=== PATIENT | female | born 1985 | race Caucasian/White ===

== ENCOUNTER 2018-11-20 20:56 | Inpatient (IN) | payer BC ==
[2018-11-20] MEDS ORDERED: DINOPROSTONE 10 MG VAGINAL INSERT.SR PV PRN (21:18)
[2018-11-20] MEDS ORDERED: ACETAMINOPHEN 325 MG TABLET PO PRN (21:31)
[2018-11-20] MEDS ORDERED: MAG HYDROX/AL HYDROX/SIMETH SUSP 30 ML UDCUP PO PRN (21:31)
--- NOTE | 2018-11-20 21:45 | Admission Physical ---
Datetime Report Generated by CPN: 11/20/2018 21:45 CURRENT ADMISSION Chief Complaint: Scheduled Induction of Labor Indication for Induction: Maternal Diabetes Admit Impression : Term, Intrauterine ; No Active Labor Admit Plan: Admit to Unit; Initiate Labor Induction Protocol ALLERGIES Medication Allergies: No Environmental Allergies: seasonal OBSTETRICAL HISTORY EDC: 11/26/2018 00:00 : 1 Para: 0 Term: 0 : 0 SAB: 0 IAB: 0 Ectopic: 0 Livin Cesareans: 0 VBACs: 0 Multiple Births: 0 Gestational Diabetes: Yes Rh Sensitization: No Incompetent Cervix: No GIOVANNY: No Infertility: Yes ART Treatment: No Uterine Anomaly: No IUGR: No Hx Previous C/S: No Macrosomia: No Hx Loss/Stillborn: No PIH: No Hx : No Placenta Previa/Abruption: No Depression/PP Depression: No PTL/PROM: No Post Hemorrhage: No Current Procedures: Ultrasound Obstetrical History Comments: G1-Current MEDICAL HISTORY Diabetes: Yes Diabetes Type: Gestational Diabetes Blood Transfusion: No Pulmonary Disease (Asthma, TB): No Breast Disease: No Hypertension: No [employer] Professional Surgery: No Heart Disease: No Hosp/Surgery: No Autoimmune Disorder: No Anesthetic Complications: No Kidney Disease: No Abnormal Pap Smear: No Neuro/Epilepsy: No Psychiatric Disorders: No Other Medical Diseases: Yes Hepatitis/Liver Disease: No Significant Family History: No Varicosities/Phlebitis: No Trauma/Violence : No Thyroid Dysfunction: No Medical History Comments: PCOS-took Metformin until 26wks gestation; wisdom teeth removed INFECTIOUS HISTORY Gonorrhea: No Genital Herpes: No Chlamydia: No Tuberculosis: No Syphilis: No Hepatitis: No HIV/AIDS Exposure: No Rash or Viral Illness: No HPV: No PHYSICAL EXAM General: Normal HEENT: Normal Neurologic: Normal Thyroid: Normal Heart: Normal Lungs: Normal Breast: Normal Back: Normal Abdomen: Normal Genitourinary Exam: Normal Extremities: Normal DTRs: Normal Pelvic Type: Adequate Vital Signs: Reviewed; Within Normal Limits VAGINAL EXAM Dilatation: cl Contraction Comments: rare FETUS A EGA: 39.1 Monitoring: External US FHR- Baseline: 140-150s Variability: Moderate 6-25bpm Accelerations: 15X15 Decelerations: None FHR Category: Category I Admit Comment: GDM--on Glyburide, poor control PLANS FOR LABOR AND DELIVERY Circumcision: Yes INFORMED CONSENT Signature: with User ID: [email or web address]
[2018-11-20 21:47] LABS: ABSOLUTE EOSINOPHILS # (AUTO) 0.3 10^3/uL (0.0-0.6); ABSOLUTE LYMPHOCYTES (AUTO) 1.3 10^3/uL (0.5-4.7); ABSOLUTE MONOCYTES (AUTO) 0.8 10^3/uL (0.1-1.4); ABSOLUTE NEUT (AUTO) 7.3 10^3/uL (1.7-8.2); BASOPHILS % (AUTO) 0.4 % (0-2); EOSINOPHILS % (AUTO) 3.3 % (0-6); HEMATOCRIT 36.3 % (36.0-47.0); HEMOGLOBIN 12.3 g/dL (12.0-15.5); LYMPHOCYTES % (AUTO) 13.4 % (13-45); MEAN CORPUSCULAR HEMOGLOBIN 27.6 pg (27.0-33.4); MEAN CORPUSCULAR HGB CONC 33.8 g/dL (32.0-36.0); MEAN CORPUSCULAR VOLUME 82 fl (80-97); PLATELET COUNT 255 10^3/uL (150-450); RED BLOOD COUNT 4.43 10^6/uL (3.72-5.28); RED CELL DISTRIBUTION WIDTH 14.1 % (11.5-14.0); SEGMENTED NEUTROPHILS % (AUTO) 74.9 % (42-78); TOTAL CELLS COUNTED % (AUTO) 100 %; WHITE BLOOD COUNT 9.7 10^3/uL (4.0-10.5)
[2018-11-20 21:51] LABS: APPEARANCE,URINE CLOUDY; BILIRUBIN,URINE NEGATIVE (NEGATIVE); COLOR,URINE YELLOW; GLUCOSE, URINE NEGATIVE (NEGATIVE); KETONES,URINE NEGATIVE (NEGATIVE); LEUKOCYTE ESTERASE,URINE LARGE (NEGATIVE); NITRITE,URINE NEGATIVE (NEGATIVE); PROTEIN,URINE NEGATIVE (NEGATIVE); URINE SPECIFIC GRAVITY 1.028; UROBILINOGEN,URINE NEGATIVE mg/dL (<2.0)
[2018-11-20] MEDS ORDERED: DINOPROSTONE 10 MG VAGINAL INSERT.SR ONE (21:57)
[2018-11-20] MEDS ORDERED: ZOLPIDEM TARTRATE 5 MG TABLET PO SCH (22:00)
[2018-11-20] MEDS ORDERED: RINGERS SOLUTION,LACTATED 300 ML IV ONE (22:00)
[2018-11-20 22:03] LABS: ALANINE AMINOTRANSFERASE 21 U/L (9-52); ALBUMIN 3.2 g/dL (3.5-5.0); ALKALINE PHOSPHATASE 193 U/L (38-126); ANION GAP 7 (5-19); ASPARTATE AMINO TRANSFERASE 15 U/L (14-36); BILIRUBIN,DIRECT 0.1 mg/dL (0.0-0.4); BILIRUBIN,TOTAL 0.3 mg/dL (0.2-1.3); BLOOD UREA NITROGEN 11 mg/dL (7-20); CARBON DIOXIDE 23 mmol/L (22-30); CHLORIDE 108 mmol/L (98-107); GLUCOSE 130 mg/dL (75-110); POTASSIUM 4.3 mmol/L (3.6-5.0); SODIUM 138.4 mmol/L (137-145); TOTAL PROTEIN 5.6 g/dL (6.3-8.2)
[2018-11-20 22:10] LABS: URINE AMPHETAMINES SCREEN NEGATIVE; URINE BARBITURATES SCREEN NEGATIVE; URINE BENZODIAZEPINES SCREEN NEGATIVE; URINE COCAINE SCREEN NEGATIVE; URINE MARIJUANA (THC) SCREEN NEGATIVE; URINE METHADONE SCREEN NEGATIVE; URINE PHENCYCLIDINE SCREEN NEGATIVE
[2018-11-21] MEDS ORDERED: AMOXICILLIN PO SCH (10:00)
[2018-11-21] MEDS ORDERED: GUAIFENESIN PO SCH (10:00)
[2018-11-21] MEDS ORDERED: P EPHED HCL PO SCH (10:00)
[2018-11-21] MEDS: AMOXICILLIN TRIHYDRATE 500 MG CAPSULE PO SCH ×3 (10:04→22:00)
[2018-11-21] MEDS: RINGERS SOLUTION,LACTATED 1,000 ML IV PRN ×2 (10:05→21:36)
[2018-11-21] MEDS ORDERED: OXYTOCIN/NORMAL SALINE 20 UNIT/1,000 ML RTUINJ IV PRN (12:34)
[2018-11-21] MEDS ORDERED: OXYTOCIN/NORMAL SALINE 20 UNIT/1,000 ML RTUINJ ONE (12:37)
[2018-11-21] MEDS ORDERED: LIDOCAINE 1% INJ-PF (10 MG/ML) 30 ML SDV ONE ×2 (12:37→21:00)
[2018-11-21] MEDS ORDERED: MISOPROSTOL 0.2 MG TABLET ONE (12:37)
[2018-11-21] MEDS: MONTELUKAST SODIUM 10 MG TABLET PO SCH (13:34)
--- NOTE | 2018-11-21 15:19 | L&D Progress Notes ---
PROGRESS NOTES Datetime Report Generated by CPN: 11/21/2018 15:19 PROGRESS NOTE Impression: Normal Progression of Labor Procedures: Sterile Vag Exam Plan: Continue Present Management; Induction Informed Consent Obtained: Vaginal Delivery Comment: pitocin infusing at 6mu/min. cook catheter out. continue pitocin IOL, anticipate VAGINAL EXAM Dilatation: 5 Dilatation: cl Effacement: 75 Station: -3 Contractions: rare LAST VAGINAL EXAM-NURSING Dilitation: 5.0 Dilitation: 3.0 Dilitation: 1.0 Dilitation: 0.0 Effacement: 75 Effacement: 75 Effacement: 50 Effacement: 50 Station: -3 Station: -3 Station: -3 Station: high Contractions: UTD due to pt in bathroom Contractions: UTD due to pt position Contractions: applied MEMBRANES Membranes: Intact FETUS A FHR - Baseline: 135 Monitoring: External US Variability: Moderate 6-25bpm Accelerations: 15X15 Decelerations: None FHR Category: Category I : 40+5 : 39.1 SIGNATURE SIGNATURE: [id number] SIGNATURE: [id number] Assignment: Julianna Mackey MD Signature: with User ID: [email or web address] : with User ID: Leslie
[2018-11-21] MEDS ORDERED: DIPHENHYDRAMINE HCL 50 MG/ML VIAL ONE (19:51)
[2018-11-21] MEDS ORDERED: DIPHENHYDRAMINE HCL 50 MG/ML VIAL IV ONE (19:51)
--- NOTE | 2018-11-21 20:03 | L&D Progress Notes ---
PROGRESS NOTES Datetime Report Generated by CPN: 11/21/2018 20:02 PROGRESS NOTE Impression: Normal Progression of Labor; Rupture of Membranes Procedures: Artificial ROM; Sterile Vag Exam Plan: Continue Present Management; Induction; Cervical Ripening Informed Consent Obtained: Vaginal Delivery; Induction of Labor; Risks, Benefits and Alternatives Discussed Comment: reportedly 5cm at last check. However, on my exam 4cm and anterior with cervix swollen. Benadryl for cervical swelling. Light meconium noted. Reviewed meconium with patient. Continue pitocin and position changes. Epidural upon maternal request. VAGINAL EXAM Dilatation: 4 Effacement: 50 Station: -3 Contractions: q 2-4 Dilitation: 4.0 Effacement: 50 Station: -3 Contractions: UTD due to pt in bathroom, RN at bedside palpating ctxs MEMBRANES Membranes: Ruptured Amniotic Fluid Color: Meconium, Light FETUS A FHR - Baseline: 120 Monitoring: External US Variability: Moderate 6-25bpm Accelerations: 15X15 Decelerations: None FHR Category: Category I FETUS C SIGNATURE: [id number] Signature: with User ID: [email or web address]
[2018-11-21] MEDS ORDERED: FENTANYL/BUPIVACAINE/NS/PF 300 MCG/150 ML RTUINJ EPI ONE (20:34)
[2018-11-21] MEDS ORDERED: BUPIVACAINE HCL 0.25 % INJ/PF (2.5 MG/1 ML) 30 ML VIAL ONE (20:34)
[2018-11-21] MEDS ORDERED: EPHEDRINE SULFATE INJ 50 MG/1 ML AMPULE ONE (20:34)
[2018-11-22] MEDS ORDERED: LIDOCAINE 2% INJ-PF (20 MG/ML) 10 ML AMPUL ONE (02:10)
[2018-11-22] MEDS ORDERED: DIPHENHYDRAMINE HCL 50 MG/ML VIAL ONE (02:21)
[2018-11-22] MEDS ORDERED: DIPHENHYDRAMINE HCL 50 MG/ML VIAL IV ONE (03:00)
[2018-11-22] MEDS ORDERED: OXYTOCIN/NORMAL SALINE 20 UNIT/1,000 ML RTUINJ ONE (07:19)
[2018-11-22] MEDS ORDERED: OXYTOCIN/NORMAL SALINE 20 UNIT/1,000 ML RTUINJ IV PRN (08:02)
[2018-11-22] MEDS ORDERED: ACETAMINOPHEN 650 MG SUPP.RECT PR PRN (08:02)
[2018-11-22] MEDS ORDERED: PSEUDOEPHEDRINE HCL 30 MG TABLET PO PRN (08:02)
[2018-11-22] MEDS ORDERED: MISOPROSTOL 0.2 MG TABLET PR PRN (08:02)
[2018-11-22] MEDS ORDERED: ACETAMINOPHEN WITH CODEINE #3 TABLET PO PRN ×2 (08:02)
[2018-11-22] MEDS ORDERED: PROMETHAZINE HCL 25 MG SUPP.RECT PR PRN (08:02)
[2018-11-22] MEDS ORDERED: MAGNESIUM HYDROXIDE SUSP 30 ML UDCUP PO PRN (08:02)
[2018-11-22] MEDS ORDERED: BENZOCAINE/MENTHOL AEROSOL SPRAY 56 ML TOP PRN (08:02)
[2018-11-22] MEDS ORDERED: ZOLPIDEM TARTRATE 5 MG TABLET PO PRN (08:02)
[2018-11-22] MEDS ORDERED: PROMETHAZINE HCL 25 MG TABLET PO PRN (08:02)
[2018-11-22] MEDS ORDERED: NA PHOS,M-B/NA PHOS,DI-BA (ADULT) 133 ML ENEMA PR PRN (08:02)
[2018-11-22] MEDS ORDERED: DIBUCAINE 1% OINTMENT 28 GM TP PRN (08:02)
[2018-11-22] MEDS ORDERED: DIPH/PERTUSS(ACELL)/TETANUS VAC/PF 0.5 ML SYR (>=10YO) IM PRN (08:02)
[2018-11-22] MEDS ORDERED: MEASLES,MUMPS&RUBELLA VACC/PF 0.5 ML VIAL SUBCUT PRN (08:02)
[2018-11-22] MEDS ORDERED: GLYCERIN/WITCH HAZEL LEAF 1 EACH MED..PAD TP PRN (08:02)
[2018-11-22] MEDS ORDERED: PROMETHAZINE HCL INJ 25 MG/1 ML VIAL IV PRN (08:02)
[2018-11-22] MEDS ORDERED: DIPHENHYDRAMINE HCL 25 MG CAPSULE PO PRN (08:02)
--- NOTE | 2018-11-22 08:49 | Warning Signs in Babies ---
VOD Warning Signs Datetime Report Generated by [facility]: 11/22/2018 08:48 VOD#608 -Warning Signs in Babies: Viewed with Parent(s)/Family (11/20/2018 19:54:Ellie Jason RN)
[2018-11-22] MEDS: AMOXICILLIN TRIHYDRATE 500 MG CAPSULE PO SCH ×3 (08:58→21:43)
[2018-11-22] MEDS: PRENATAL VITAMIN W DHA CAPSULE PO SCH (10:29)
[2018-11-22] MEDS: SENNOSIDES/DOCUSATE 8.6-50 MG 1 EACH TABLET PO SCH (10:29)
[2018-11-22] MEDS: DOCUSATE SODIUM 100 MG CAPSULE PO SCH ×2 (10:30→18:25)
[2018-11-22] MEDS: FERROUS SULFATE 325 MG TABLET PO SCH ×2 (10:31→18:25)
[2018-11-22] MEDS: FAMOTIDINE 20 MG TABLET PO SCH ×2 (10:31→21:45)
--- NOTE | 2018-11-22 12:24 | Delivery Summary ---
Del Sum A-C Datetime Report Generated by CPN: 11/22/2018 12:23 DELIVERY PERSONNEL DELIVERY PERSONNEL: [id number] Delivery Doctor:: Julianna Mackey MD Labor and Delivery Nurse:: Amaya Chance RNaccounting generalist Nurse:: Ellie Jason RN Nursery Nurse:: Madalyn Abdullahi RN Nursery Nurse:: Radha Arciniega RN Die Trimmer/REPORT CHECKER: Denis Ertel, REPORT CHECKER MATERNAL INFORMATION Delivery Anesthesia: Epidural Medications After Delivery: Pitocin Drip 20 Units/1000ml NSS; Cytotec 1000mcg Per Rectum/Vagina Estimated Blood Loss (ml): 900 Maternal Complications: None Provider Comments: VMI delivered in MAG presentation. No nuchal cord. body and compound cord. Shoulders and body delivered without difficulty. Cord doubly clamped and cut and infant to maternal abdomen for NRP. Placenta delivered intact spontaneously. Pitocin infused and Cytotec 1000mcg per rectum placed for improvement of uterine tone. FF at U. 2nd degree perineal laceration repaired in usual fashion. Good hemostasis. LABOR SUMMARY EDC: 11/26/2018 00:00 No. Babies in Womb: 1 Attempted: No Labor Anesthesia: Epidural LABOR INFORMATION Reason for Induction: Maternal Diabetes Onset of Labor: 11/21/2018 14:31 Complete Dilatation: 11/22/2018 03:47 Cervical Ripening Agents: Cervidil Oxytocin: Induction Group B Beta Strep: Negative Antibiotics # of Doses: 0 Steroids Given: None Reason Steroids Not Administered: Not Applicable MEMBRANES Membranes Rupture Method: Artificial Rupture of Membranes: 11/21/2018 19:29 Length of Rupture (hr): 11.73 Amniotic Fluid Color: Light Meconium Amniotic Fluid Amount: Small Amniotic Fluid Odor: Normal STAGES OF LABOR Stage 1 hr: 13 Stage 1 min: 16 Stage 2 hr: 3 Stage 2 min: 26 Stage 3 hr: 0 Stage 3 min: 3 Total Time in Labor hr: 16 Total Time in Labor min: 45 VAGINAL DELIVERY Episiotomy: None Laceration #1: Vaginal Laceration Extension #1: Second Degree Laceration Repair: Yes Sponge Count Correct: Yes Sharps Count Correct: Yes CSECTION DELIVERY Primary Indication: N/A Secondary Indication: N/A CSection Incidence: N/A Labor: N/A Elective: N/A CSection Incision: N/A BABY A INFORMATION Delivery Date/Time: 11/22/2018 07:13 Method of Delivery: Vaginal Born in Route : No : N/A Forceps: N/A Vacuum Extraction: N/A Shoulder Dystocia : No PRESENTATION/POSITION BABY A Presentation: Cephalic Cephalic Presentation: Vertex Vertex Position: Right Occipital Anterior Breech Presentation: N/A PLACENTA INFORMATION BABY A Placenta Delivery Time : 11/22/2018 07:16 Placenta Method of Delivery: Spontaneous Placenta Status: Delivered SCORES BABY A Heart Rate 1 min: >100 bpm Resp Effort 1 min: Good Cry Reflex Irritability 1 min: Cough or Sneeze or Pulls Away Muscle Tone 1 min: Active Motion Color 1 min: Blue/Pale SCORE 1 MIN: 8 Heart Rate 5 min: >100 bpm Resp Effort 5 min: Good Cry Reflex Irritability 5 min: Cough or Sneeze or Pulls Away Muscle Tone 5 min: Active Motion Color 5 min: Body Martin, Extremities Blue SCORE 5 MIN: 9 INFORMATION BABY A Gestational Age at Delivery: 39.3 Gestational Status: Full Term- 39- 40.6 Weeks Outcome : Liveborn Infant Condition : Stable Sex: Male IDENTIFICATION BABY A Infant Verification Date/Time: 11/22/2018 07:24 ID Band Number: [id number] Mother's Name Verified: Yes RN Verifying : E. Henriquelek RN/ C. Webster RN WEIGHT/LENGTH BABY A Infant Birthweight (gm): 3848 Infant Weight (lb): 8 Weight (oz): 8 Length (in): 20.00 Length (cm): 50.80 CORD INFORMATION BABY A No. Cord Vessels: 3 Nuchal Cord : N/A Nuchal Cord- Other: body cord Cord Blood Taken: Yes-For Storage (Mom's Blood type +) Suction: None ASSESSMENT BABY A Complications: Extended Tachycardia; Meconium Skin to Skin: Yes Skin to Skin Time (min): 60 Care By: A. Shafar RN Transferred To: Remains with Mother BABY B INFORMATION : N/A SIGNATURES Signature: with User ID: [email or web address] : I was personally available for consultation and serving as supervising physician for the MLP.
[2018-11-22] MEDS: IBUPROFEN 800 MG TABLET PO SCH ×2 (14:04→21:43)
[2018-11-22] MEDS: MONTELUKAST SODIUM 10 MG TABLET PO SCH ×2 (19:55→21:43)
[2018-11-23] MEDS: AMOXICILLIN TRIHYDRATE 500 MG CAPSULE PO SCH ×3 (05:54→21:27)
[2018-11-23] MEDS: IBUPROFEN 800 MG TABLET PO SCH ×3 (05:54→21:27)
[2018-11-23 07:49] LABS: HEMATOCRIT 26.1 % (36.0-47.0); MEAN CORPUSCULAR HEMOGLOBIN 27.3 pg (27.0-33.4); MEAN CORPUSCULAR HGB CONC 33.4 g/dL (32.0-36.0); MEAN CORPUSCULAR VOLUME 82 fl (80-97); PLATELET COUNT 208 10^3/uL (150-450); RED BLOOD COUNT 3.19 10^6/uL (3.72-5.28); RED CELL DISTRIBUTION WIDTH 14.4 % (11.5-14.0); WHITE BLOOD COUNT 13.4 10^3/uL (4.0-10.5)
[2018-11-23 07:53] LABS: HEMOGLOBIN 8.7 g/dL (12.0-15.5)
[2018-11-23] MEDS: DOCUSATE SODIUM 100 MG CAPSULE PO SCH ×2 (10:30→18:03)
[2018-11-23] MEDS: PRENATAL VITAMIN W DHA CAPSULE PO SCH (10:31)
[2018-11-23] MEDS: FERROUS SULFATE 325 MG TABLET PO SCH ×2 (10:31→18:03)
[2018-11-23] MEDS: FAMOTIDINE 20 MG TABLET PO SCH ×2 (10:31→21:27)
[2018-11-23] MEDS: SENNOSIDES/DOCUSATE 8.6-50 MG 1 EACH TABLET PO SCH (10:31)
[2018-11-23] MEDS ORDERED: GUAIFENESIN SYRP 200 MG/10 ML UDC PO PRN (16:14)
[2018-11-23] MEDS: MONTELUKAST SODIUM 10 MG TABLET PO SCH (21:27)
[2018-11-24] MEDS: IBUPROFEN 800 MG TABLET PO SCH ×2 (05:49→14:25)
[2018-11-24] MEDS: AMOXICILLIN TRIHYDRATE 500 MG CAPSULE PO SCH ×2 (05:49→14:25)
[2018-11-24 09:15] VITALS: BP 124/80
--- NOTE | 2018-11-24 10:19 | PDOC PROGRESS REPORT ---
Subjective-OB Progress Note for:: 11/24/18 - PP Day #2 Physical Exam (OB) Vital Signs: Temp Pulse Resp BP Pulse Ox 98.2 F 83 18 124/80 99 11/24/18 08:04 11/24/18 08:04 11/24/18 08:04 11/24/18 08:04 11/24/18 08:04 Intake & Output 11/23/18 11/24/18 11/25/18 06:59 06:59 06:59 Intake Total 400 480 Balance 400 480 - General General Appearance: Appears well, Alert - PIH/Pre-Eclampsia Clonus: Negative Headache: Absent Epigastric Pain: No Visual Changes: No - Lochia Lochia Amount: Scant < 10 ml Lochia Color: Rubra/Red - Abdomen Description: Tender Hernia Present: No Fundal Description: Firm, Midline Fundal Height: u/u - u/2 - Respiratory Respiratory Status: No respiratory distress - Abdominal Inspection: Normal Distension: No distension - Genitourinary Genitourinary Note: voiding - Extremities Upper extremity: Normal inspection Lower extremities: Normal inspection - Neurological Cognition: Normal Orientation: AAOx4 - Psychological Associated symptoms: Normal affect, Normal mood - Skin Skin Temperature: Warm Skin Moisture: Dry Objective-Diagnostic Laboratory: 11/23/18 07:34 11/20/18 21:30 Assessment and Plan(PN) - Assessment and Plan (1) Normal course Is this a current diagnosis for this admission?: Yes (2) Acute blood loss anemia Is this a current diagnosis for this admission?: Yes (3) Encounter for induction of labor Is this a current diagnosis for this admission?: Yes (4) Gestational diabetes Qualifiers: Gestational diabetes mellitus control: oral hypoglycemic-controlled Is this a current diagnosis for this admission?: Yes (5) Meconium in amniotic fluid Is this a current diagnosis for this admission?: Yes (6) hemorrhage Qualifiers: hemorrhage type: third-stage Qualified Code(s): O72.0 - Third- stage hemorrhage Is this a current diagnosis for this admission?: Yes - Time Spent with Patient Time with patient: Less than 15 minutes Medications reviewed and adjusted accordingly: Yes - Disposition Anticipated Discharge: Home Within: within 24 hours
--- NOTE | 2018-11-24 10:23 | PDOC DISCHARGE SUMMARY ---
Final Diagnosis Discharge Date: 11/24/18 - Final Diagnosis (1) Normal course Is this a current diagnosis for this admission?: Yes (2) Acute blood loss anemia Is this a current diagnosis for this admission?: Yes (3) Encounter for induction of labor Is this a current diagnosis for this admission?: Yes (4) Gestational diabetes Is this a current diagnosis for this admission?: Yes (5) Meconium in amniotic fluid Is this a current diagnosis for this admission?: Yes (6) hemorrhage Is this a current diagnosis for this admission?: Yes Discharge Data - Discharge Medication Prescriptions: Ibuprofen [Motrin 800 mg Tablet] 800 mg PO Q8 #60 tablet Home Medications: Glyburide/Metformin HCl [Glyburid-Metformin 1.25-250 mg] 1 each PO HSP 11/20/18 Montelukast Sodium [Singulair 10 mg Tablet] 10 mg PO QHS 11/20/18 Pnv No.95/Ferrous Fum/Folic AC [ Caplet] 1 each PO DAILY 11/20/18 Ibuprofen [Motrin 800 mg Tablet] 800 mg PO Q8 #60 tablet 11/24/18 Reason(s) for Admission: Onset of Labor Procedures: Ultrasound Intrapartum Procedure(s): Spontaneous Vaginal Delivery Complication(s): Laceration-Vaginal Laceration-Degree: 2nd - Diagnosis Test Laboratory: Temp Pulse Resp BP Pulse Ox 98.2 F 83 18 124/80 99 11/24/18 08:04 11/24/18 08:04 11/24/18 08:04 11/24/18 08:04 11/24/18 08:04 11/20/18 11/20/18 11/23/18 21:30 21:52 07:34 RBC 4.43 3.19 L Hgb 12.3 8.7 L D Hct 36.3 26.1 L Urine Opiates Screen NEGATIVE - Discharge information/Instructions Discharge Activity: Activity As Tolerated, No Lifting Over 10 Pounds, Pelvic Rest Discharge Diet: As Tolerated, Regular Disposition: HOME, SELF-CARE Follow up with: [facility] in: 4, Weeks
[2018-11-24] MEDS: SENNOSIDES/DOCUSATE 8.6-50 MG 1 EACH TABLET PO SCH (10:33)
[2018-11-24] MEDS: DOCUSATE SODIUM 100 MG CAPSULE PO SCH (10:33)
[2018-11-24] MEDS: FERROUS SULFATE 325 MG TABLET PO SCH (10:33)
[2018-11-24] MEDS: PRENATAL VITAMIN W DHA CAPSULE PO SCH (10:33)
[2018-11-24] MEDS: FAMOTIDINE 20 MG TABLET PO SCH (10:33)
== END 2018-11-24 14:26 | disposition home or self-care (01) | DRG 806 ==
LOC: LR 20:56 → 2S 11-22 09:24
PROVIDERS: ADMIT Obstetrics & Gynecology; ATTEND Student in an Organized Health Care Education/Training Program
PROC: 10E0XZZ Delivery of Products of Conception, External Approach (ICD-10-PCS; principal; 2018-11-22)
PROC: 0KQM0ZZ Repair Perineum Muscle, Open Approach (ICD-10-PCS; 2018-11-22)
PROC: 4A1HXCZ Monitoring of Products of Conception, Cardiac Rate, External Approach (ICD-10-PCS; 2018-11-22)
DX: O24.425 Gestational diabetes mellitus in childbirth, controlled by oral hypoglycemic drugs (principal); D62 Acute posthemorrhagic anemia; Z37.0 Single live birth; O72.1 Other immediate postpartum hemorrhage; O99.02 Anemia complicating childbirth; O77.0 Labor and delivery complicated by meconium in amniotic fluid; O32.6XX0 Maternal care for compound presentation, not applicable or unspecified; O70.1 Second degree perineal laceration during delivery; O76 Abnormality in fetal heart rate and rhythm complicating labor and delivery; Z3A.39 39 weeks gestation of pregnancy
CPT/HCPCS: 36415; 80053; 80307; 81005; 85025; 85027; 86592; 86850; 86900; 86901; 94760; C1726; J1200; J2590; J3010; J3490